=== PATIENT | male | born 1990 | race Caucasian/White ===

== ENCOUNTER 2018-04-18 17:22 | Emergency (ER) | payer BC, OTHER ==
[~2018-04-18] VITALS: Ht 177.8 cm; Wt 65.8 kg
[~2018-04-18 17:22] MED LIST: CLARITIN10 M2 PO
--- OUTSIDE RECORDS SUMMARY | 2018-04-18 17:26 | XMS REPORT ---
Author Author [facility] Address Unknown Phone Unavailable Care Team Providers Care Car [employer]erry Master Name Role Phone Unavailable Unavailable Payers Payer Name Policy Type Policy Number Effective Date Expiration Date Problems This patient has no known problems. Allergies, Adverse Reactions, Alerts Allergy Name Allergy Type Status Severity Reaction(s) Onset Date Inactive Date Treating Clinician Comments No Known Allergies DA Active U 2015-09-02 00:00:00 Medications This patient has no known medications.
--- NOTE | 2018-04-18 19:40 | Diagnostic Imaging Report ---
EXAMINATION: CHEST SINGLE (NOT PORTABLE) INDICATION: Chest pain COMPARISON: None FINDINGS: AP view TUBES and LINES: None. LUNGS: Rounded opacity in the right mid to lower lung with obscuration of the hilum. PLEURA: No pleural effusion or pneumothorax. HEART AND MEDIASTINUM: The cardiomediastinal silhouette is unremarkable. BONES AND SOFT TISSUES: No acute osseous lesion. Soft tissues are unremarkable. UPPER ABDOMEN: No free air under the diaphragm. IMPRESSION: Rounded opacity in the right mid to lower lung, concerning for pneumonia in the appropriate clinical setting. Recommend chest x-ray after appropriate therapy to document resolution. If infection not clinically suspected, recommend chest CT for further evaluation. Signed by: DR. Paco Henley MD on 04/18/2018 7:36 PM
[2018-04-18 20:24] LABS: BILIRUBIN,URINE NEGATIVE (NEGATIVE); CLARITY,URINE CLEAR (CLEAR); COLOR,URINE YELLOW (YELLOW); KETONES,URINE NEGATIVE (NEGATIVE); LEUKOCYTE ESTERASE ,URINE NEGATIVE (NEGATIVE); NITRITE,URINE NEGATIVE (NEGATIVE); PROTEIN,URINE DIPSTICK NEGATIVE (NEGATIVE); URINE UROBILINOGEN 0.2 mg/dL (0.2 - 1)
[2018-04-18 20:25] LABS: BACTERIA,URINE FEW /HPF; EPITHELIAL CELLS,URINE FEW /LPF; WBC,URINE (MAN) 0-5 /HPF (0-5)
[2018-04-18] MEDS ORDERED: CEFTRIAXONE SOD 1 GM VIAL IM ONE (22:00)
[2018-04-18] MEDS ORDERED: CEFTRIAXONE SOD 1 GM/NS 50 ML 50 ML IV ONE (22:00)
[2018-04-18 22:36] VITALS: BP 118/86
== END 2018-04-18 22:41 | disposition home or self-care (01) ==
LOC: ER 17:22
DX: R05 Cough (principal); J15.9 Unspecified bacterial pneumonia
CPT/HCPCS: 71045; 81001; 93005; 99283; J0696

== ENCOUNTER 2018-04-23 21:38 | Emergency (ER) | payer BC ==
[~2018-04-23] VITALS: Ht 177.8 cm; Wt 65.8 kg
[2018-04-23] MEDS ORDERED: ONDANSETRON HCL 4 MG ORAL DISINTEGRATING TAB PO ONE (22:15)
[2018-04-23] MEDS ORDERED: ACETAMINOPHEN 325 MG TAB PO ONE (22:15)
--- NOTE | 2018-04-23 23:03 | Diagnostic Imaging Report ---
EXAMINATION: CHEST 2 VIEWS INDICATION: COUGH. Fever. Chest pain. Pneumonia. COMPARISON: 07/02/2012. FINDINGS: TUBES and LINES: None. LUNGS: Large oval density in the right middle hemithorax/middle lobe suggestive of consolidative pneumonia in the proper clinical setting. PLEURA: No pleural effusion or pneumothorax. HEART AND MEDIASTINUM: The cardiomediastinal silhouette is unremarkable. BONES AND SOFT TISSUES: No acute osseous lesion. UPPER ABDOMEN: No free air under the diaphragm. IMPRESSION: Right midlung consolidation suggestive of pneumonia in the proper clinical setting. Recommend chest PA and lateral views after treatment in 6 week to document resolution. Signed by: Dr. Chase Billingsley M.D. on 04/23/2018 11:00 PM
[2018-04-23 23:13] VITALS: BP 119/82
[2018-04-24] MEDS ORDERED: CEFTRIAXONE SOD 1 GM VIAL IM ONE (00:15)
[2018-04-24] MEDS ORDERED: LIDOCAINE HCL 1% 2 ML AMP ONE (06:47)
== END 2018-04-24 00:59 | disposition home or self-care (01) ==
LOC: ER 21:38
DX: R50.9 Fever, unspecified (principal); R05 Cough; J15.9 Unspecified bacterial pneumonia
CPT/HCPCS: 71046; 87400; 96372; 99283; J0696; J2001; Q0162; 99284